=== PATIENT | female | born 1980 | race Caucasian/White ===

== ENCOUNTER 2017-10-09 18:39 | Outpatient (CLI) | END 2017-10-09 21:20 | disposition home or self-care (01) ==

== ENCOUNTER 2017-10-11 11:32 | Outpatient (CLI) | END 2017-10-11 15:26 | disposition home or self-care (01) ==

== ENCOUNTER 2017-10-30 21:10 | Inpatient (IN) | END 2017-11-03 15:04 | disposition home or self-care (01) | DRG 781 ==

== ENCOUNTER 2017-11-05 09:47 | Outpatient (CLI) | END 2017-11-05 11:45 | disposition home or self-care (01) ==

== ENCOUNTER 2017-11-07 22:35 | Inpatient (IN) | END 2017-11-16 15:20 | disposition home or self-care (01) | DRG 765 ==